=== PATIENT | male | born 1990 | race Caucasian/White ===

== ENCOUNTER 2017-09-03 08:27 | Emergency (ER) | payer OTHER ==
[~2017-09-03] VITALS: Ht 182.9 cm; Wt 88.6 kg
[2017-09-03 08:28] VITALS: BP 151/84
--- NOTE | 2017-09-03 09:16 | REP ---
Clinical: Chest pain . Comparison: None . Technique: PA and lateral. Findings: The mediastinum and cardiac silhouette are normal. The lung bernard are clear and without acute consolidation, effusion, or pneumothorax. The skeletal structures are intact and normal. Impression: 1. No acute cardiopulmonary process. Signed by Sudheer Barnhart MD 09/03/2017 09:08 A
[2017-09-03] MEDS ORDERED: IBUP80TA PO (10:07)
== END 2017-09-03 10:12 | disposition home or self-care (01) ==
LOC: M ED 08:27
DX: M94.0 Chondrocostal junction syndrome [Tietze] (principal)

== ENCOUNTER 2017-11-05 17:45 | Emergency (ER) | payer OTHER | END 2017-11-05 20:53 | disposition home or self-care (01) | LOC: M ED 17:45 | DX: N50.3 Cyst of epididymis (principal); N43.3 Hydrocele, unspecified; I86.1 Scrotal varices | CPT/HCPCS: 76870 ==

== ENCOUNTER 2019-05-10 16:08 | Emergency (ER) | payer OTHER ==
[~2019-05-10] VITALS: Ht 215.9 cm; Wt 84.5 kg
[~2019-05-10 16:08] MED LIST: IBUP-1022 PO; IBUP80TA PO
[2019-05-10] MEDS ORDERED: PROZ10CA7 PO (16:12)
--- NOTE | 2019-05-10 16:42 | REP ---
Clinical: chest pain. Comparison: 09/03/2017. Technique: PA and lateral. Findings: The mediastinum and cardiac silhouette are normal. The lung bernard are clear and without acute consolidation, effusion, or pneumothorax. The skeletal structures are intact and normal. Impression: 1. No acute cardiopulmonary process. Electronically Signed by Sudheer Barnhart MD 05/10/2019 04:34 P
[2019-05-10 17:00] LABS: BASO # 0.1 10^3/uL (0.0-0.2); BASO % 0.7 % (0.0-1.0); EOS # 0.1 10^3/uL (0.0-0.50); EOS % 0.7 % (0.0-3.0); HEMOGLOBIN 16.1 g/dl (13.5-17.5); LYMPH # 2.4 10^3/uL (1.5-6.5); LYMPH % 34.1 % (24.0-44.0); MEAN CORPUSCULAR HEMOGLOBIN 31.9 pg (27.0-33.0); MEAN CORPUSCULAR VOLUME 91.1 fl (80.0-96.0); MONO # 0.4 10^3/uL (0.0-0.8); MONO % 4.9 % (0.0-5.0); NEUTROPHILS # 4.3 10^3/uL (1.8-7.7); NEUTROPHILS % 59.3 % (36.0-66.0); PLATELET COUNT, AUTOMATED 273 10^3/uL (150-450); RED BLOOD COUNT 5.05 10^6/uL (4.30-6.10); WHITE BLOOD COUNT 7.2 10^3/uL (4.0-10.0)
[2019-05-10 17:33] LABS: BLOOD UREA NITROGEN 10 MG/DL (7-18); CALCIUM LEVEL 9.2 MG/DL (8.5-10.1); CARBON DIOXIDE LEVEL 28 MEQ/L (21-32); CHLORIDE LEVEL 106 MEQ/L (98-107); CK-MB VALUE MASS 1.9 NG/ML (<3.6); CPK CREATINE PHOSPHOKINASE 260 U/L (39-308); CREATININE FOR GFR 0.98 MG/DL (0.70-1.30); FREE T4 1.01 NG/DL (0.76-1.46); GLOMERULAR FILTRATION RATE > 60.0 (>60); GLUCOSE, FASTING 86 MG/DL (70-100); MB/CK RELATIVE INDEX 0.73 (< OR =4); POTASSIUM SERUM 4.1 MEQ/L (3.5-5.1); SODIUM LEVEL 141 MEQ/L (136-145); TROPONIN I < 0.02 NG/ML (< 0.10)
[2019-05-10] MEDS ORDERED: NAPR-885 PO (17:55)
[2019-05-10 18:07] VITALS: BP 118/74
--- NOTE | 2019-05-11 08:15 | ECGEPIP ---
[facility] - ED Test Date: 2019-05-10 Pat Name: AYAZ BENITEZ Department: Room: - Gender: Male [employer]: : 1990 Requested By: VANCE Zepeda PA-C Order Number: [id number] Reading MD: Anaya Wong Measurements Intervals [place] Rate: 71 P: 62 IN: 136 QRS: 82 QRSD: 110 T: 44 QT: 359 QTc: 392 Interpretive Statements SINUS RHYTHM No prior Electronically Signed on 05-11-2019 8:14:52 EDT by Anaya Wong
== END 2019-05-10 18:09 | disposition home or self-care (01) ==
LOC: M ED 16:08
DX: R07.9 Chest pain, unspecified (principal); Z79.899 Other long term (current) drug therapy